=== PATIENT | male | born 1965 | race Caucasian/White ===

== ENCOUNTER 2017-03-20 15:03 | Emergency (ER) | payer MEDICAID ==
--- NOTE | 2017-03-20 15:37 | EDPHY ---
HPI/HX/ROS/PE/MDM Narrative: CHIEF COMPLAINT: Groin pain and swelling HPI: This patient is a 51-year-old male who presents to the Emergency Department complaining of gradually increasing swelling and pain localized to his left inguinal area beginning 2-3 months prior to arrival. He states that the pain has been manageable until the past 3-5 days and presents today because the pain has become too severe to bear. He describes the pain as waxing and waning and radiating to the left side of his abdomen. He has no identified any exacerbating or alleviating factors for his pain. He denies urinary complaints or any additional concerns. Medical history includes TBI with seizure disorder. REVIEW OF SYSTEMS: Aside from elements discussed in the HPI, a comprehensive 10-point review of systems was reviewed and is negative. PMH: TBI with seizure disorder. SOCIAL HISTORY: Brother at bedside. PHYSICAL EXAM: General:Patient is alert, in no acute distress. ENT:Eyes are normal to inspection. ENT inspection normal. Neck: Normal inspection. Full range of motion. Respiratory:No respiratory distress. Breath sounds normal bilaterally. Cardiovascular: Regular rate and rhythm. Strong peripheral pulses. Normal cap refill. Abdomen:The abdomen is nontender to palpation. There are no peritoneal signs. There are normal bowel sounds. Genitourinary: Large amount of tense swelling in left inguinal region extending into left hemiscrotum Back: Normal to inspection. No tenderness to palpation. Skin: Normal color. No rash. Warm and dry. Extremities: Normal appearance. Full range of motion. Neuro: Oriented x3. Normal motor function. Normal sensory function. ED Course: 51-year-old male presents with significant tense swelling to his left inguinal region extending into left hemiscrotum most suggestive of an inguinal hernia. He has no other complaints and his exam is otherwise normal. Abdomen is soft and nontender. Will proceed with CT imaging of the abdomen and pelvis. 1700: CT reveals an incarcerated left inguinal hernia, per Dr. Ken, radiology. I discussed these results with the patient. Plan for consultation with surgery. 170: Consultation with Dr. Terence Barksdale, general surgery, who will visit the patient in the ED. Dr. Barksdale evaluated the patient in the Emergency Department and feels that he can be seen as an outpatient this week. The patient is agreeable to this. He is given Tylenol and Ibuprofen instructions for pain and customary return precautions. He will be discharged home in good condition. - Data Points Imaging Results: Imaging Impressions Abdomen/Pelvis CT 03/20/17 15:54 Impression: 1. Left inguinal hernia with proximal sigmoid colon within the hernia and mild inflammatory changes suggested. 2. No bowel obstruction or diverticulitis. 3. Atherosclerotic aorta without aneurysm. 4. No nephrolithiasis or urinary tract obstruction. Attention: This CT examination is specifically designed to evaluate patients who are clinically suspected of having acute obstructive uropathy. This examination does not use radiographic contrast, and as such, provides only a limited evaluation of the abdomen, pelvis and retroperitoneum. If there is further clinical suspicion for pathological conditions other than obstructive uropathy, a complete CT evaluation of the abdomen and pelvis utilizing intravenous, oral, and rectal contrast should be considered. Findings discussed with Emergency Department physician, Anoop Antonio MD, at 1652 hours, 03/20/2017. Final report concurs with initial preliminary interpretation. General Time Seen by Provider: 03/20/17 15:34 Initial Vital Signs: Initial Vital Signs Temperature (C) 36.5 C 03/20/17 15:13 Heart Rate 80 03/20/17 15:13 Respiratory Rate 16 03/20/17 15:13 Blood Pressure 151/95 H 03/20/17 15:13 O2 Sat (%) 93 03/20/17 15:13 O2 Delivery Mode Room Air Allergies/Adverse Reactions: No Known Allergies Allergy (Unverified 09/06/10 17:37) Home Medications: Medication Instructions Recorded Phenytoin [Dilantin] 0 mg PO 03/12/12 Amoxicillin/Clavulanate Pot 875 mg PO BID #20 tab 11/30/15 [Augmentin 875 mg tab] Departure - Departure Disposition: Home, Routine, Self-Care Clinical Impression: Incarcerated inguinal hernia Condition: Good Instructions: Inguinal Hernia (ED) Additional Instructions: 1. Dr. Barksdale's office will call you to schedule a follow-up appointment. 2. Alternate 650mg Tylenol and 600mg Ibuprofen every 4-6 hours as needed for pain. 3. Return to the Emergency Department with severe pain, increased swelling, or for other serious concerns. Referrals: Terence Barksdale MD [Medical Doctor] - As per Instructions Report Scribed for: Anoop Antonio Report Scribed by: Aggie Vargas Date of Report: 03/20/17 Time of Report: 15:36 Physician Review and Approval Statement: Portions of this note were transcribed by an ED scribe. I personally performed the history, physical exam, and medical decision making; and confirm the accuracy of the information in the transcribed note.
[2017-03-20 18:32] VITALS: BP 145/86; PULSE 74; RESP 18; TEMP 97.9; O2SAT 96
--- NOTE | 2017-03-20 21:54 | PDCONSULT ---
Director Outpatient Services Note: Nayan Beltran this is a 51-year-old gentleman who presented to the emergency room with a 1-2 month history of enlarging left groin hernia. The patient presented to the emergency room for evaluation and management as he was told that this could rupture and he could . 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 He has a history consistent with enlarging hernia with occasional groin pain which takes his breath away. Coughing is the worst. He does not lift on a regular basis. Past medical history significant for seizure disorder and traumatic brain injury Past surgical history includes craniotomy x2 and remote cervical lymph node biopsy Medications antiseizure/epileptic medications patient is not aware of which once they are. He goes to [facility] for his medical care No known drug allergies Review of systems significant for his hernia and seizure disorder all others reviewed and are negative Phenytoin [Dilantin] 0 mg PO 03/12/12 [Last Taken Unknown] Regular rate and rhythm Clear to auscultation bilaterally Abdomen soft nontender nondistended irreducible left groin hernia No right groin hernias appreciated 2+ over 2+ radial, femoral and dorsalis pedis pulses No peripheral edema No skin rashes Normal turgor and tone Alert to person place and time Nonfocal neurologic exam No lymphadenopathy Previous evidence of right craniotomy at the frontal suture CT scan is personally reviewed demonstrating sigmoid colon in the left groin hernia appears to be direct Imaging Impressions Abdomen/Pelvis CT 03/20/17 15:54 Impression: 1. Left inguinal hernia with proximal sigmoid colon within the hernia and mild inflammatory changes suggested. 2. No bowel obstruction or diverticulitis. 3. Atherosclerotic aorta without aneurysm. 4. No nephrolithiasis or urinary tract obstruction. Attention: This CT examination is specifically designed to evaluate patients who are clinically suspected of having acute obstructive uropathy. This examination does not use radiographic contrast, and as such, provides only a limited evaluation of the abdomen, pelvis and retroperitoneum. If there is further clinical suspicion for pathological conditions other than obstructive uropathy, a complete CT evaluation of the abdomen and pelvis utilizing intravenous, oral, and rectal contrast should be considered. Findings discussed with Emergency Department physician, Anoop Antonio MD, at 1652 hours, 03/20/2017. Final report concurs with initial preliminary interpretation. Impression: Left groin hernia Seizure disorder History of traumatic brain injury Plan: Outpatient evaluation in the office. The patient has been advised of the risks of strangulation and the signs for which he should seek urgent attention. Cap the patient verbalized his understanding prior to agreeing for discharge. The office will call him on his cell phone to arrange a meeting this Sunday early next week. The cell phone number given was [phone]
== END 2017-03-20 18:45 | disposition home or self-care (01) ==
DX: K40.30 Unilateral inguinal hernia, with obstruction, without gangrene, not specified as recurrent (principal)

== ENCOUNTER 2017-04-05 05:31 | Day surgery (SDC) | payer MEDICAID ==
[2017-04-05] MEDS ORDERED: ceFAZolin 2 GM/DEXTROSE 100 ML IV ONE (05:53)
--- NOTE | 2017-04-05 05:55 | PDHPUP ---
History & Physical Update H&P update statement: This history and physical update is based on an assessment of the patient which was completed after admission or registration (within 24 hours), but prior to the surgery/procedure.
[2017-04-05] MEDS ORDERED: LIDOCAINE 1% 2 ML INJ ID PRN (05:57)
[2017-04-05] MEDS ORDERED: LR 1,000 ML IV ONE (05:57)
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
[2017-04-05] MEDS ORDERED: MIDAZOLAM 2 MG/2 ML VIAL IVP ONE (06:56)
[2017-04-05] MEDS ORDERED: BUPIVACAINE 0.5% 30 ML SDV ONE (07:00)
[2017-04-05] MEDS ORDERED: LIDOCAINE 1% 300 MG/30 ML SDV ONE (07:00)
[2017-04-05] MEDS ORDERED: PROPOFOL/EMULSION 500 MG/50 ML BOTTLE IV ONE (07:11)
[2017-04-05] MEDS ORDERED: ONDANSETRON 4 MG/2 ML VIAL ONE (07:11)
[2017-04-05] MEDS ORDERED: ROCURONIUM 50 MG/5 ML VIAL ONE (07:11)
[2017-04-05] MEDS ORDERED: KETOROLAC 30 MG/1 ML SDV ONE (07:11)
[2017-04-05] MEDS ORDERED: DEXAMETHASONE 4 MG/ML VIAL ONE (07:11)
[2017-04-05] MEDS ORDERED: fentaNYL 100 MCG/2 ML INJ ONE ×3 (07:11→08:36)
[2017-04-05] MEDS ORDERED: GLYCOPYRROLATE 0.2 MG/1 ML VIAL ONE ×4 (07:12→08:54)
[2017-04-05] MEDS ORDERED: LIDOCAINE 2% 5 ML SDV ONE (07:12)
[2017-04-05] MEDS ORDERED: MIDAZOLAM 2 MG/2 ML VIAL ONE (07:30)
[2017-04-05] MEDS ORDERED: NEOSTIGMINE METHYLSULFATE 5 MG/5 ML SYR ONE (08:54)
[2017-04-05] MEDS ORDERED: fentaNYL 100 MCG/2 ML INJ IVP PRN (09:08)
[2017-04-05] MEDS ORDERED: NALOXONE HCL 0.4 MG/ML INJ IVP PRN (09:08)
[2017-04-05] MEDS ORDERED: ONDANSETRON 4 MG/2 ML VIAL IVP PRN (09:08)
[2017-04-05] MEDS ORDERED: PROMETHAZINE HCL 25 MG/ML INJ IVP PRN (09:08)
[2017-04-05] MEDS ORDERED: LABETALOL HCL 50 MG/10 ML SYR IVP PRN (09:08)
[2017-04-05] MEDS ORDERED: OXYCODONE/APAP 5/325 TAB PO PRN (09:08)
[2017-04-05] MEDS ORDERED: HYDROCODONE/APAP 5/325 TAB PO PRN (09:08)
--- NOTE | 2017-04-05 09:30 | POSTOPPROG ---
Post Op Note Date of Operation: 04/05/17 Surgeon: Terence Barksdale Anesthesiologist: magda Anesthesia: GET(General Endotracheal) Pre-op Diagnosis: inguinal hernia, b/l Post-op Diagnosis: same Procedure: b/l lap IH TEP Inf/Abcess present in the surg proc area at time of surgery?: No EBL: Minimal Specimen(s): none
[2017-04-05 09:40] VITALS: RESP 12
--- NOTE | 2017-04-05 09:51 | POSTANESTH ---
Post Anesthetic Evaluation Cardiovascular Status: Normal, Stable Respiratory Status: Similar to Pre-op Cond. Level of Consciousness/Mental Status: Can Participate in Eval Pain Control: Adequate, Prn Tx Ordered Nausea/Vomiting Control: Adequate, Prn Tx Ordered Complications Possibly Related to Anesthesia: None Noted
[2017-04-05 09:55] VITALS: TEMP 97.5
[2017-04-05 10:20] VITALS: PULSE 50
[2017-04-05 10:40] VITALS: BP 169/97; O2SAT 98
--- NOTE | 2017-04-06 09:49 | GOP ---
[f rep st] OPERATIVE REPORT DATE OF OPERATION: SURGEON: Terence Barksdale MD ASSOCIATE PROFESSOR OF PHILOSOPHY: No salon shampoo assistant. PREOPERATIVE DIAGNOSIS: Inguinal hernia, bilateral. POSTOPERATIVE DIAGNOSIS: Inguinal hernia, bilateral. PROCEDURE PERFORMED: Laparoscopic TEP inguinal hernia repair with 3DMax mesh. FINDINGS: Were of a large scrotal hernia containing the sigmoid colon as well as a smaller direct r ight inguinal hernia. INDICATIONS: This is a 51-year-old gentleman, who presents to the hospital for elective repair of a previously incarcerated left inguinal hernia. DESCRIPTION OF PROCEDURE: Patient was brought to the operating room, where after induction of endot shazia anesthesia in a supine position, his abdomen was prepped with chlorhexidine and draped steri nando. Time-out procedure was performed according to the institutional standards. Local anesthetic was infused in the skin and subcutaneous tissues of the trocar sites, and open preperitoneal trocar placement was performed 1st while dissecting the space out with a balloon dissector and then using a structural balloon to maintain the space. There was a rent in the peritoneum that is visible on in troduction of the endoscope after structural balloon and this was repaired at the end of the case. The preperitoneal space was completely dissected out from anterior superior iliac spine on the left, anterior superior iliac spine on the right taking care to preserve the cord structures as well as i dentify the pubic tubercle medially and the vessels as well as the cord structures. A large scrotal hernia was noted on the left. Hemostasis was assured in its reduction. The mesh was used to inter pose between the hernia defect and the peritoneum on either. After this is adequately in place, 2 t rocars were placed in the right upper quadrant of a 5 mm trocar and tack application. The posterior peritoneum is reapproximated without difficulty and the abdomen was exited. The fascia was closed using 0 Vicryl at the level of the umbilicus and all ports were closed at the skin level using 4-0 M onocryl. Dermabond was applied. The patient was awakened, extubated and taken to the recovery room in stable condition. No immediate complications. COMPLICATIONS: There were no complications. /[id number]/MODL
== END 2017-04-05 10:45 | disposition home or self-care (01) ==
LOC: FSGY 05:31
PROVIDERS: ATTEND Surgery
PROC: 0YUA4JZ Supplement Bilateral Inguinal Region with Synthetic Substitute, Percutaneous Endoscopic Approach (ICD-10-PCS; principal; 2017-04-05 07:15)
DX: K40.20 Bilateral inguinal hernia, without obstruction or gangrene, not specified as recurrent (principal); G40.909 Epilepsy, unspecified, not intractable, without status epilepticus
CPT/HCPCS: 49650; C1727; C1781; J0690; J1100; J1885; J2250; J2405; J2704; J2710; J3010

== ENCOUNTER 2018-12-18 07:05 | Emergency (ER) | payer MEDICAID ==
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
[2018-12-18 07:28] LABS: PLATELET COUNT 361 10^3/uL (150-400)
[2018-12-18] MEDS ORDERED: LORazepam 1 MG TAB PO ONE (09:42)
[2018-12-18 14:47] VITALS: BP 160/101
--- NOTE | 2018-12-18 18:18 | ASMTTCLDSP ---
[facility] Discharge Disposition Disposition: Answers: Discharge If Answers: Yes DISCHARGED: Patient/family given suicide hotline info & SAMHSA brochure? Disposition Notes: Notes: The patient stated commitment or ability to keep self safe and denied thoughts of self harm or harm to others. The patient was given local hotline information and SAMSHA brochure after an attempt and expressed desire to follow up with [facility]. Discharge Concerns/Recommendations: Notes: In consultation with [facility] ED physician, Morris Antonio MD, he concurred that the patient does not appear to meet 27-65 criteria requiring psychiatric hospitalization as patient does not appear to be an imminent risk of harm to self/others/gravely disabled due to a mental illness condition. Was patient given the Answers: Not applicable Inpatient Behavioral Health Prohibited Belongings List while in the ED? Date Signed: 12/18/2018 06:17 PM Electronically Signed By:Jasmin Pham
--- NOTE | 2018-12-18 19:09 | ASMTTLCEVL ---
[facility] Evaluation - Basic Information Evaluation Start Date and 12/18/2018 12:00 PM Time Hospital Status Answers: Voluntary Patient statement Notes: Am I alive? "I can't figure out the world anymore." "Every now and then I can handle it." "I miss my mother." Narrative Notes: The patient is a 53 y/o male, single, unemployed, with no prior documented dx hx. He lives alone in a trailer in [place], [place]. The patient arrived via EMS voluntarily after he called the police citing anxious symptoms. The patient reported that he had a TBI, two brain surgeries, and a seizure d/o. The patient presented intermittently disoriented and confused. Otherwise, the patient was clear and organized. He reported increased "stress and worry." The patient reported that he hoped to receive "forgiveness" from his cat through this emergency room visit. The patient endorsed passive suicidal ideation; no intent nor plan. The patient repeatedly stated, "I don't know" in response to this bid writer. The patient presented as labile, irritable, and tearful. At the time of initial utox testing in the ed the patient was positive for thc and barbiturates. According to the patient's brother, Gordo, the patient is unable to work do to his seizures. Gordo provides limited income to the patient. The patient had "dementia episode" 15 years ago, that resulted in a delusion of being poisoned by the cat. The patient didn't endorse this fear during the evaluation. Per Gordo, the patient also has a hx of A/VH that include hearing "song lyrics and advertisements." Diagnosis History Notes: The patient denied any previous d/o and dx hx. Prior suicide attempts Notes: The patient denied any prior suicide attempts. Prior hospitalizations Notes: The patient denied any prior hospitalizations for mh. Treatment Responses Notes: There is not sufficient information to determine the patients treatment response. History of violence Notes: The patient denied any homicidal ideation or previous hx of violence. Therapist: None Psychiatrist: None Medications (name, dosage, route, freq uency) Notes: None Allergies/Reaction Notes: no known allergies Sleep Notes: The patient denied has changes in sleep; stating "I get decent sleep." The patient's brother reported that the patient is sleep deprived. Appetite Notes: The patient denied changes in appetite including weight loss or gain. Medical/Surgical history Notes: The patient has a seizure d/o and had two brain surgeries; time unknown. Substance use history (frequency, intensity, his tory, duration) Notes: The patient reported a hx of etoh use; he denied current use. The patient reported daily thc use; frequency, intensity, and duration unknown. The patient stated, "I don't know." Family composition Notes: The patient reported that his brother, Gordo, was his only family. Family psychiatric/substance abuse history Notes: The patient denied any family psychiatric/substance abuse hx. Developmental history Notes: The patient denied any developmental issues or learning disabilities. The patient denied ADD or ADHD. The patient denied any physical abuse, emotional abuse, or sexual abuse. Abuse concerns Answers: None Marital status/children Notes: The patient is single without children. Living situation Notes: The patient lives alone in a trailer in [place], [place]. Peer support/family strengths Notes: The patient denied having a supportive peer group. Work history Notes: The patient is unemployed. Notes: no known affiliation Legal Notes: The patient denied any legal issues. Islam/Spiritual Notes: The patient reported none that would interfere with treatment. Collateral Notes: The collateral data was obtained from current and previous [facility] ed records/staff, and family members: Gordo. Patient's strengths Answers: Motivated for Treatment (Please select at least TWO strengths): Supportive Family Willingness TLC Evaluation - Mental Status Exam Appearance: Answers: Appropriate Unkempt Disheveled Eye Contact: Answers: Appropriate for Culture Intermittent Mood: Answers: Irritable Labile Sad Affect: Answers: Anxious Calm Confused Guarded Irritable Labile Sad Tearful Behavior: Answers: Appropriate Cooperative Anxious Crying Guarded Manipulative Speech: Answers: Relevant Logical Clear Coherent Thought Process: Answers: Organized Disoriented Alert Insight: Answers: Fair Judgement: Answers: Good Manic Signs/Symptoms Answers: Irritability Mood Swings Depression Answers: Crying Spells Signs/Symptoms: Sad Mood Anxiety Signs/Symptoms Answers: Generalized Anxiety Hallucinations: Answers: None Delusions: Answers: Paranoid Ideation Current Stage of Change Answers: Contemplation Pt reported to have Answers: No suicidal/self-injuring ideation/behavior? Pt reported to be making Answers: No suicidal/self-injuring threats? Pt reported to have Answers: No aggression/assault ideation/behavior? Pt reported to be making Answers: No aggression/assault threats? Pt exhibits inability to Answers: No care for self/grave disability? Ideation/behavior is Answers: No chronic? Patient has a specific Answers: No plan? Pt has access to means to Answers: No execute the plan? Ideation involves Answers: No serious/lethal intent? Ideation has Answers: No delusional/hallucinatory content? History of Answers: No suicidal/self-injuring ideation, behavior, or threats? History of Answers: No aggressive/assaultive ideation, behavior, or threats? TLC Evaluation - Suicide/Homicide Risk Suicide Risk Factors: Answers: < 20 or > 40 Years of Age Alcohol/Heavy Drug Use Financial Difficulties Inadequate Social Support Lack/Loss of Employment Single Other Notes: TBI, Seizure d/o Homicide/violence risk Answers: Heavy Drug Use factors: Paranoid Ideation Current Suicidal Answers: No Ideation? Current Suicidal Ideation Answers: No in the Past 48 Hours? Current Suicidal Ideation Answers: No in the Past Month? Current Suicidal Answers: No Ideation, Worst Ever? Suicide Internal Answers: Absence of Psychosis Protective Factors: Marlon with Stress Suicide External Answers: Positive Therapeutic Protective Factors: Relationships Responsibility to Pets Ranking of patient's Answers: Low suicidal risk: Ranking of patient's Answers: Low homicidal risk: TLC Evaluation - Wrap-up BDI Total Score: N/A BDI Question #2 Score: N/A BDI Question #9 Score: N/A BSS Total Score: N/A AXIS I Diagnosis (include DSM-V and ICD-10 codes), must also be entered in [employer], which is the source of truth. Notes: Unspecified Anxiety Disorder 300.00 (F41.9) Cannabis Use Disorder, severe 304.30 (F12.20) Evaluation End Date and 12/18/2018 02:00 PM Time (HH:JANETT): Date Signed: 12/18/2018 07:07 PM Electronically Signed By:Jasmin Pham
== END 2018-12-18 14:54 | disposition home or self-care (01) ==
LOC: EDUNIT#
DX: F32.9 Major depressive disorder, single episode, unspecified (principal); G40.909 Epilepsy, unspecified, not intractable, without status epilepticus; Z79.899 Other long term (current) drug therapy
CPT/HCPCS: 80305